=== PATIENT | male | born 2000 | race Caucasian/White ===

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

== ENCOUNTER 2019-01-24 20:05 | Emergency (ER) | payer OTHER ==
[~2019-01-24] VITALS: Ht 182.9 cm; Wt 79.5 kg
[2019-01-24 21:08] LABS: BASO # 0.1 10^3/uL (0.0-0.2); BASO % 0.5 % (0.0-1.0); EOS # 0.3 10^3/uL (0.0-0.5); EOS % 2.8 % (0.0-3.0); HEMATOCRIT 44.8 % (42.0-52.0); HEMOGLOBIN 15.6 g/dl (13.5-17.5); LYMPH # 1.4 10^3/uL (1.5-5.0); LYMPH % 15.2 % (24.0-44.0); MEAN CORPUSCULAR HEMOGLOBIN 33.4 pg (27.0-33.0); MEAN CORPUSCULAR HGB CONC 34.8 g/dl (32.0-36.5); MEAN CORPUSCULAR VOLUME 95.9 fl (80.0-96.0); MONO # 0.8 10^3/uL (0.0-0.8); MONO % 8.4 % (0.0-5.0); NEUTROPHILS # 6.9 10^3/uL (1.5-8.5); NEUTROPHILS % 72.7 % (36.0-66.0); PLATELET COUNT, AUTOMATED 206 10^3/uL (150-450); RED BLOOD COUNT 4.67 10^6/uL (4.30-6.10); WHITE BLOOD COUNT 9.5 10^3/uL (4.0-10.0)
[2019-01-24 21:42] LABS: ALBUMIN 3.6 GM/DL (3.2-5.2); ALT/SGPT 14 U/L (12-78); BILIRUBIN,DIRECT 0.3 MG/DL (0.0-0.2); BILIRUBIN,TOTAL 1.2 MG/DL (0.2-1.0); BLOOD UREA NITROGEN 9 MG/DL (7-18); CALCIUM LEVEL 8.8 MG/DL (8.5-10.1); CARBON DIOXIDE LEVEL 31 MEQ/L (21-32); CHLORIDE LEVEL 103 MEQ/L (98-107); CREATININE FOR GFR 1.05 MG/DL (0.70-1.30); GLUCOSE, FASTING 106 MG/DL (70-100); LIPASE 95 U/L (73-393); POTASSIUM SERUM 3.8 MEQ/L (3.5-5.1); SODIUM LEVEL 139 MEQ/L (136-145)
[2019-01-24] MEDS ORDERED: PRED20TA PO (22:21)
[2019-01-24 22:34] VITALS: BP 121/62
--- NOTE | 2019-01-25 07:37 | REP ---
Clinical: Chest pain and decreased breath sounds . Comparison: None . Technique: PA and lateral. Findings: The mediastinum and cardiac silhouette are normal. The lung de los santos are clear and without acute consolidation, effusion, or pneumothorax. The skeletal structures are intact and normal. Impression: 1. No acute cardiopulmonary process. Electronically Signed by Cristóbal Mcclure MD 01/25/2019 07:30 A
== END 2019-01-24 22:36 | disposition home or self-care (01) ==
LOC: M ED 20:05
DX: J06.9 Acute upper respiratory infection, unspecified (principal); J02.9 Acute pharyngitis, unspecified; K21.9 Gastro-esophageal reflux disease without esophagitis; F17.200 Nicotine dependence, unspecified, uncomplicated

== ENCOUNTER 2019-08-14 17:43 | Emergency (ER) | payer OTHER ==
[~2019-08-14] VITALS: Ht 182.9 cm; Wt 90.8 kg
[~2019-08-14 17:43] MED LIST changes: -LIDO1SOL8 PO; +LIDO2SOL17 PO; +PRED20TA PO
[2019-08-14] MEDS ORDERED: IBUP200C25 PO (17:50)
--- NOTE | 2019-08-14 18:35 | REP ---
Clinical: Trauma . Technique: AP, lateral views of the right ankle Findings: No acute fracture or dislocation. Skeletal structures and joint spaces are intact and normal. Ankle mortise appears stable. No subcutaneous emphysema or radiodense foreign body. Impression: Normal right ankle radiograph series. Electronically Signed by Cristóbal Mcclure MD 08/14/2019 06:26 P
--- NOTE | 2019-08-14 18:37 | REP ---
Clinical: Trauma. Technique: AP, lateral, bilateral oblique views right foot . Findings: Lateral view suggests soft tissue swelling overlying the dorsum of the midfoot. The osseous structures and joint spaces are intact and normal. There is no evidence for acute fracture or dislocation. No subcutaneous emphysema or radiodense foreign body. Impression: Dorsal mid foot swelling. No acute fracture or dislocation. Electronically Signed by Cristóbal Mcclure MD 08/14/2019 06:29 P
[2019-08-14 19:12] VITALS: BP 116/62
== END 2019-08-14 19:12 | disposition home or self-care (01) ==
LOC: M ED 17:43
DX: S90.31XA Contusion of right foot, initial encounter (principal); W20.8XXA Other cause of strike by thrown, projected or falling object, initial encounter; Y92.099 Unspecified place in other non-institutional residence as the place of occurrence of the external cause; Y93.89 Activity, other specified; Y99.9 Unspecified external cause status; F17.200 Nicotine dependence, unspecified, uncomplicated

== ENCOUNTER 2020-01-12 15:36 | Emergency (ER) | payer OTHER ==
[~2020-01-12] VITALS: Ht 185.4 cm; Wt 89.0 kg
[~2020-01-12 15:36] MED LIST changes: +IBUP200C25 PO
[2020-01-12] MEDS ORDERED: BENA25CA4 IM (16:20)
[2020-01-12] MEDS ORDERED: hydrOXYzine 50 MG TAB PO STA (18:36)
[2020-01-12] MEDS ORDERED: PRED20TA PO (18:39)
[2020-01-12] MEDS ORDERED: HYDR50TA70 PO (18:39)
[2020-01-12 18:43] VITALS: BP 117/74
[2020-01-12] MEDS ORDERED: diphenhydrAMINE 50MG CAP PO ONE (18:45)
== END 2020-01-12 18:50 | disposition home or self-care (01) ==
LOC: M ED 15:36
DX: T63.441A Toxic effect of venom of bees, accidental (unintentional), initial encounter (principal); Y92.89 Other specified places as the place of occurrence of the external cause; Y93.9 Activity, unspecified; H05.229 Edema of unspecified orbit; F17.200 Nicotine dependence, unspecified, uncomplicated

== ENCOUNTER 2020-01-25 13:42 | Emergency (ER) | payer OTHER ==
[~2020-01-25] VITALS: Ht 185.4 cm; Wt 89.9 kg
[~2020-01-25 13:42] MED LIST changes: +BENA25CA4 IM; +HYDR50TA70 PO
--- NOTE | 2020-01-25 14:18 | REPVR ---
PROCEDURE INFORMATION: Exam: XR Right Hand Exam date and time: 01/25/2020 2:01 PM Age: 19 years old Clinical indication: Pain; Hand; Right; Additional info: Fall TECHNIQUE: Imaging protocol: XR Right hand. Views: 3 or more views. COMPARISON: CR Hand, Asif, Lat 09/20/2018 4:57 PM FINDINGS: Bones/joints: There is a stable deformity to the 5th metacarpal but is now healed. There is an acute fracture seen involving the base of the 5th proximal phalanx. Soft tissues: Normal. IMPRESSION: Healed 5th metacarpal fracture deformity but there is a new fracture involving the base of the 5th proximal phalanx. Electronically signed by: Aston Dimas On 01/25/2020 14:17:48 PM
[2020-01-25 15:48] VITALS: BP 120/75
== END 2020-01-25 15:48 | disposition home or self-care (01) ==
LOC: M ED 13:42
DX: S62.616A Displaced fracture of proximal phalanx of right little finger, initial encounter for closed fracture (principal); S66.306A Unspecified injury of extensor muscle, fascia and tendon of right little finger at wrist and hand level, initial encounter; W19.XXXA Unspecified fall, initial encounter; Y92.9 Unspecified place or not applicable; Y93.9 Activity, unspecified; Y99.9 Unspecified external cause status

== ENCOUNTER 2020-08-05 11:07 | Emergency (ER) | payer OTHER ==
[~2020-08-05] VITALS: Ht 188 cm; Wt 95.0 kg
[2020-08-05] MEDS ORDERED: IBUP1TAB7 PO (11:22)
--- NOTE | 2020-08-05 11:42 | REP ---
INDICATION: pain after twisting COMPARISON: None. FINDINGS: There is no fracture or dislocation. Mineralization and joint spaces are normal. There are no calcifications or foreign bodies. There is no effusion. IMPRESSION: Negative . <Electronically signed by Ricky Aguirre > 08/05/20 0829
[2020-08-05 12:11] VITALS: BP 127/66
== END 2020-08-05 12:14 | disposition home or self-care (01) ==
LOC: M ED 11:07
DX: S83.91XA Sprain of unspecified site of right knee, initial encounter (principal); X50.1XXA Overexertion from prolonged static or awkward postures, initial encounter; Y92.89 Other specified places as the place of occurrence of the external cause; Y93.9 Activity, unspecified; Y99.1 Military activity

== ENCOUNTER → 2020-09-29 | Outpatient (CLI) | payer OTHER ==
[~2020-09-29] MED LIST changes: +IBUP1TAB7 PO
--- NOTE | 2020-09-30 20:22 | ECGEPIP ---
[facility] Test Date: 2020-09-29 Pat Name: CARLOS GAONA Department: Room: - Gender: Male Medical Appointment Scheduler: kristi : 2000 Requested By: Arthur Bui Order Number: [id number] Reading MD: Chino Tyler Measurements Intervals Bryan Rate: 60 P: 22 HI: 146 QRS: 65 QRSD: 90 T: 32 QT: 376 QTc: 376 Interpretive Statements Normal sinus rhythm with Marked sinus arrhythmia, Otherwise within normal limits. No prior ECG available for comparison at the time of interpretation. Electronically Signed on 09-30-2020 20:22:30 EDT by Chino Tyler
== END ==
LOC: M EKG 13:37
PROVIDERS: ATTEND Anesthesiology
DX: R06.81 Apnea, not elsewhere classified (principal)

== ENCOUNTER 2020-10-05 08:35 | Day surgery (SDC) | payer OTHER ==
[~2020-10-05] VITALS: Ht 182.9 cm; Wt 90.7 kg
[~2020-10-05 08:35] MED LIST changes: +LR 1,000 ML IV ONE
[2020-10-05] MEDS ORDERED: BUPIVACAINE/EPIN 0.5% 30 ML VIAL As Ordered ONE (09:45)
[2020-10-05] MEDS ORDERED: LIDOCAINE W/EPINEPHRINE 1% 20ML VIAL As Ordered ONE (09:45)
[2020-10-05] MEDS ORDERED: SCOPOLAMINE 1MG TRANSDERMAL PATCH TOP ONE (09:55)
[2020-10-05] MEDS ORDERED: dexameTHASONE 4 MG/ML 1ML VIAL (J1100 PER 1MG) As Ordered ONE (10:01)
[2020-10-05] MEDS ORDERED: ACETAMINOPHEN 1000MG 100ML IV BTL (OFIRMEV) (J0131 PER 10MG) As Ordered ONE ×2 (10:01→10:28)
[2020-10-05] MEDS ORDERED: propofoL 200 MG/20 ML VIAL As Ordered ONE (10:01)
[2020-10-05] MEDS ORDERED: ROCURONIUM BROMIDE 50 MG/5 ML VIAL As Ordered ONE (10:01)
[2020-10-05] MEDS ORDERED: LIDOCAINE 2% 100MG/5ML SDV (FOR ANES.) As Ordered ONE (10:01)
[2020-10-05] MEDS ORDERED: ONDANSETRON 4MG/2ML VIAL As Ordered ONE (10:01)
[2020-10-05] MEDS ORDERED: SUCCINYLCHOLINE 100 MG/5 ML SYRINGE (J0330) As Ordered ONE (10:01)
[2020-10-05] MEDS ORDERED: fentaNYL 100 MCG/2 ML INJECTION (J3010) As Ordered ONE (10:02)
[2020-10-05] MEDS ORDERED: MIDAZOLAM INJ 2MG/2ML VIAL (J2250 PER 1MG) As Ordered ONE (10:02)
[2020-10-05] MEDS ORDERED: HYDROmorphone HCL 2 MG/ML 1ML VIAL (J1170) As Ordered ONE (10:33)
[2020-10-05] MEDS ORDERED: oxyCODONE 5MG TAB PO PRN (11:00)
[2020-10-05] MEDS ORDERED: LR 1,000 ML IV SCH ×2 (11:00→11:05)
[2020-10-05] MEDS ORDERED: ONDANSETRON 4MG/2ML VIAL IV PRN (11:00)
[2020-10-05] MEDS ORDERED: HYDROMORPHONE HCL 0.5 MG/ 0.5 ML SYRINGE (J1170 PER 1) IV PRN (11:00)
[2020-10-05] MEDS ORDERED: NORCO, ANEXSIA 5/325MG TABLET (HYDROcodone/ACETAMINOPHEN) PO PRN (11:05)
--- NOTE | 2020-10-05 11:33 | RO ---
OPERATIVE NOTE DATE OF OPERATION: 10/05/2020 PREOPERATIVE DIAGNOSIS: Chronic tonsillitis. POSTOPERATIVE DIAGNOSIS: Chronic tonsillitis. PROCEDURE: Tonsillectomy. SURGEON: Noam Toussaint MD [facility] SPECIALIST: ANESTHESIA: DESCRIPTION OF PROCEDURE: Under general anesthesia with the patient intubated a Cheema-Darius mouth gag was inserted. The tonsillar area was infiltrated with Lidocaine with Epinephrine and Marcaine. Using cautery I dissected the tonsils free from their beds on both sides. The vessels seen were cauterized. The patient tolerated the procedure well. Same procedure performed on both sides. No blood loss. The patient was extubated and transferred to recovery room in excellent condition.
[2020-10-05] MEDS: fentaNYL 100 MCG/2 ML INJECTION (J3010) IV PRN ×2 (11:50→12:00)
[2020-10-05 12:55] VITALS: BP 113/61
== END 2020-10-05 13:10 | disposition home or self-care (01) ==
LOC: M SDC 08:35
PROVIDERS: ATTEND Otolaryngology
DX: J35.01 Chronic tonsillitis (principal)
CPT/HCPCS: 42826; 88302; J0131; J0330; J1100; J1170; J2250; J2405; J3010

== ENCOUNTER 2020-11-16 20:42 | Emergency (ER) | payer OTHER ==
[~2020-11-16] VITALS: Ht 185.4 cm; Wt 91.5 kg
[~2020-11-16 20:42] MED LIST changes: -LR 1,000 ML IV ONE
[2020-11-16] MEDS ORDERED: BOOSTRIX/ADACEL VACCINE (DIPHTH/PERTUSS/ACELL/TETANUS) 0.5ML SYR IM ONE (22:45)
[2020-11-16] MEDS ORDERED: AUGM875T28 PO (22:54)
[2020-11-16 22:56] VITALS: BP 120/74
[2020-11-16] MEDS ORDERED: AUGMENTIN 875 MG TAB PO ONE (23:35)
--- NOTE | 2020-11-17 00:01 | REPVR ---
PROCEDURE INFORMATION: Exam: XR Right Hand Exam date and time: 11/16/2020 10:45 PM Age: 19 years old Clinical indication: Other: Nail puncture to palm; Additional info: Nail in hand TECHNIQUE: Imaging protocol: XR Right hand. Views: 3 or more views. COMPARISON: CR Hand, complete 01/25/2020 1:52 PM FINDINGS: Bones/joints: Chronic deformity of the 5th metacarpal bone and base of the 5th proximal phalanx. No acute fracture. No dislocation. Soft tissues: Normal. No radiopaque foreign body. IMPRESSION: 1. No acute fracture. 2. Chronic fractures as described. 3. No radiopaque foreign body. Electronically signed by: Sejal Mckeon On 11/17/2020 00:00:15 AM
== END 2020-11-16 23:41 | disposition home or self-care (01) ==
LOC: M ED 20:42
DX: S61.431A Puncture wound without foreign body of right hand, initial encounter (principal); W29.4XXA Contact with nail gun, initial encounter; Y92.009 Unspecified place in unspecified non-institutional (private) residence as the place of occurrence of the external cause; Y93.89 Activity, other specified; Y99.9 Unspecified external cause status

== ENCOUNTER 2021-03-21 10:19 | Emergency (ER) | payer OTHER ==
[~2021-03-21] VITALS: Ht 182.9 cm; Wt 96.5 kg
[~2021-03-21 10:19] MED LIST changes: +AUGM875T28 PO
--- OUTSIDE RECORDS SUMMARY | 2021-03-21 10:26 | CCD ---
Author Author [facility] Organization [facility] Address Unknown Phone Unavailable Care Team Providers Care Real Time Analyst Name Role Phone Noam Toussaint MD Unavailable Unavailable Noam Toussaint MD Unavailable Unavailable Noam Toussaint MD Unavailable Unavailable Noam Toussaint MD Unavailable Unavailable Noam Toussaint MD Unavailable Unavailable Noam Toussaint MD Unavailable Unavailable Noam Toussaint MD Unavailable Unavailable Noam Toussaint MD Unavailable Unavailable Noam Toussaint MD Unavailable Unavailable Noam Toussaint MD Unavailable Unavailable Noam Toussaint MD Unavailable Unavailable [place]Noam MD Unavailable Unavailable [place]Noam MD Unavailable Unavailable [place]Noam MD Unavailable Unavailable Noam Toussaint MD Unavailable Unavailable Noam Toussaint MD Unavailable Unavailable Noam Toussaint MD Unavailable Unavailable Noam Toussaint MD Unavailable Unavailable Noam Toussaint MD Unavailable Unavailable Noam Toussaint MD Unavailable Unavailable Noam Toussaint MD Unavailable Unavailable Noam Toussaint MD Unavailable Unavailable Noam Toussaint MD Unavailable Unavailable Noam Toussaint MD Unavailable Unavailable Noam Toussaint MD Unavailable Unavailable Noam Toussaint MD Unavailable Unavailable E[place]ls[place]Noam MD Unavailable Unavailable E[place]ls[place]Noam MD Unavailable Unavailable [place]Noam MD Unavailable Unavailable [place]Noam MD Unavailable Unavailable [place]Noam MD Unavailable Unavailable Belén II, Billy PA Unavailable Unavailable Belén II, Billy PA Unavailable Unavailable Belén II, Billy PA Unavailable Unavailable Belén II, Billy PA Unavailable Unavailable Belén II, Billy PA Unavailable Unavailable Belén II, Billy PA Unavailable Unavailable Belén II, Billy PA Unavailable Unavailable Belén II, Billy PA Unavailable Unavailable Belén II, Billy PA Unavailable Unavailable Belén II, Billy PA Unavailable Unavailable Belén II, Billy PA Unavailable Unavailable Belén II, Billy PA Unavailable Unavailable Belén II, Billy PA Unavailable Unavailable Belén II, Billy PA Unavailable Unavailable Belén II, Billy PA Unavailable Unavailable Belén II, Billy PA Unavailable Unavailable Belén II, Billy PA Unavailable Unavailable Belén II, Billy PA Unavailable Unavailable Belén II, Billy PA Unavailable Unavailable Re-disclosure Warning The records that you are about to access may contain information from federally-assisted alcohol or drug abuse programs. If such information is present, then the following federally mandated warning applies: This information has been disclosed to you from records protected by federal confidentiality rules (42 CFR part 2). The federal rules prohibit you from making any further disclosure of this information unless further disclosure is expressly permitted by the written consent of the person to whom it pertains or as otherwise permitted by 42 CFR part 2. A general authorization for the release of medical or other information is NOT sufficient for this purpose. The Federal rules restrict any use of the information to criminally investigate or prosecute any alcohol or drug abuse patient.The records that you are about to access may contain highly sensitive health information, the redisclosure of which is protected by Article 27-F of the [facility] Public Health law. If you continue you may have access to information: Regarding HIV / AIDS; Provided by facilities licensed or operated by the [facility] Office of Mental Health; or Provided by the [facility] Office for People With Developmental Disabilities. If such information is present, then the following [facility] mandated warning applies: This information has been disclosed to you from confidential records which are protected by state law. State law prohibits you from making any further disclosure of this information without the specific written consent of the person to whom it pertains, or as otherwise permitted by law. Any unauthorized further disclosure in violation of state law may result in a fine or nursing home sentence or both. A general authorization for the release of medical or other information is NOT sufficient authorization for further disc losure. Encounters Encounter Providers Location Date Indications Data Source(s ) Office Visit Attender: Billy Agee/Norbert/Addy/Rein dl 10/12/2020 01:30:00 PM EDT [facility] ([facility], ) Outpatient Attender: Noam Agee/Norbert/Addy/Haim nunez 09/14/2020 09:50:00 AM EDT [facility] ([facility], ) Immunizations Vaccine Date Status Description Data Source(s) COVID-19 VACCINE Pfizer 09/23/2020 12:00:00 AM EDT completed [facility] Vaccine Series Complete: YESThis Data wa s Submitted to [facility] [employer]. COVID-19 VACCINE Pfizer 08/31/2020 12:00:00 AM EDT completed [facility] Vaccine Series Complete: NOThis Data was Submitted to [facility] [employer]. Medications Medication Brand Name Start Date Product Form Dose Route Admi nistrative Instructions Pharmacy Instructions Status Indications Reaction Description Data Source(s) Acetaminophen 325 MG / Hydrocodone Bitartrate 5 MG Oral Tabl et [[place]] [place] 10/05/2020 12:00:00 AM EDT active [facility] ([facility], ) Amoxicillin 500 MG / Clavulanate 125 MG Oral Tablet [Augment in] Augmentin 09/14/2020 12:00:00 AM EDT ORAL completed [facility] ([facility], ) No Active Medications 09/14/2020 12:00:00 AM EDT completed [facility] ([facility], ) Insurance Providers Payer name Policy type / Coverage type Policy ID Covered green party ID Covered green party's relationship to lyles Policy Lyles Plan Information U [id number] Self [id number] U [id number] Self [id number] U [id number] Self [id number] 100 EAST ACTIVE DUTY [id number] SP [id number] [employer] - RECURRING [id number] 18 [id number] EAST HU[employer]NA - O/P [id number] 18 [id number] Problems, Conditions, and Diagnoses No Information Surgeries/Procedures Procedure Description Date Indications Data Source(s) Tonsillectomy > 12 Years 10/05/2020 12:00:00 AM EDT [facility] ([facility], ) Results ID Date Data Source [id number] 10/05/2020 10:38:00 AM EDT [facility] ([facility]) Name Value Range Interpretation Code Description Data Maria Elena rce(s) Supporting Document(s) Surgical pathology study Laboratory test result [facility] ([facility]) FINAL DIAGNOSIS A-Right tonsil, tonsillectomy: Squamous epithelial-lined hyperplastic lymphoid tissue, consistent with tonsil. Negative for malignancy. B-Left tonsil, tonsillectomy: Squamous epithelial-lined hyperplastic lymphoid tissue, consistent with tonsil. Negative for malignancy. 10/06/2020 - 1114 CLINICAL DIAGNOSIS Chronic tonsillitis 10/05/2020 - 152 GROSS DIAGNOSIS A - Received in formalin labeled "right tonsil" and consists of a fragment of tonsil 4 x 4 x 3 cm. The specimen is grossly unremarkable. [employer] section submitted in one. B - Received in formalin labeled "left tonsil" and consists of a fragment of tonsil 3 x 3 x 2 cm. The specimen is grossly unremarkable. [employer] section submitted in one. -OA 10/05/2020 - 1526 Signed RAISA GOMEZ MD 10/06/2020 1115 ID Date Data Source [id number] 08/09/2020 11:33:00 AM EDT [facility] Name Value Range Interpretation Code Description Data Maria Elena rce(s) Supporting Document(s) SARS coronavirus [address] [facility] [place] This lab was ordered by [facility] and reported by [facility]. ID Date Data Source [id number] 06/13/2020 08:55:00 AM EST [facility] Name Value Range Interpretation Code Description Data Maria Elena rce(s) Supporting Document(s) SARS coronavirus 2 RNA Not Detected [facility] [place] This lab was ordered by [facility] and reported by [facility]. Procedure Social History No Information Vital Signs ID Date Data Source UNK Name Value Range Interpretation Code Description Data Source(s) Body height 72 [in_i] 72 [in_i] [facility] ([facility]) 6'0" Body weight 198.00 [lb_av] 198.00 [lb_av] [facility] Body mass index (BMI) [Ratio] 26.9 kg/m2 26.9 k g/m2 [facility] ([facility]) [place] body weight 178 [lb_av] 178 [lb_av] [facility] ([facility]) Body weight 89.813 kg 89.813 kg [facility] ([facility]) Body surface area Derived from formula 2.12 m2 2.12 m2 [facility] ([facility]) Body weight 91.174 kg 91.174 kg [facility] ([facility]) Body surface area Derived from formula 2.14 m2 2.14 m2 [facility] ([facility]) Body height 72 [in_i] 72 [in_i] [facility] ([facility]) 6'0" Body weight 201.00 [lb_av] 201.00 [lb_av] [facility] ([facility]) Body mass index (BMI) [Ratio] 27.3 kg/m2 27.3 k g/m2 [facility] ([facility]) [place] body weight 178 [lb_av] 178 [lb_av] [facility] ([facility])
--- OUTSIDE RECORDS SUMMARY | 2021-03-21 11:40 | CCD ---
Author Author [facility] Organization [facility] Address Unknown Phone Unavailable Care Team Providers Care Paper Stacker Name Role Phone Noam Toussaint MD Unavailable Unavailable Noam Toussaint MD Unavailable Unavailable Noam Toussaint MD Unavailable Unavailable Noam Toussaint MD Unavailable Unavailable Noam Toussaint MD Unavailable Unavailable Noam Toussaint MD Unavailable Unavailable Noam Toussaint MD Unavailable Unavailable Noam Toussaint MD Unavailable Unavailable Noam Toussaint MD Unavailable Unavailable Noam Toussaint MD Unavailable Unavailable [place] Toussaint MD Unavailable Unavailable BogueNoam MD Unavailable Unavailable BogueNoam MD Unavailable Unavailable BogueNoam MD Unavailable Unavailable Noam Toussaint MD Unavailable Unavailable Noam Toussaint MD Unavailable Unavailable Noam Toussaint MD Unavailable Unavailable Noam Toussaint MD Unavailable Unavailable Noam Toussaint MD Unavailable Unavailable Noam Toussaint MD Unavailable Unavailable Noam Toussaint MD Unavailable Unavailable Noam Toussaint MD Unavailable Unavailable Noam Toussaint MD Unavailable Unavailable Noam Toussaint MD Unavailable Unavailable Noam Toussaint MD Unavailable Unavailable Noam Toussaint MD Unavailable Unavailable BogueNoam MD Unavailable Unavailable BogueNoam MD Unavailable Unavailable BogueNoam MD Unavailable Unavailable BogueNoam MD Unavailable Unavailable BogueNoam MD Unavailable Unavailable Belén II, Billy PA [...] is protected by Article 27-F of the [facility] Public Health law. If you continue you may have access to information: Regarding HIV / AIDS; Provided by facilities licensed or operated by the [facility] Office of Mental Health; or Provided by the [facility] Office for People With Developmental Disabilities. If such information is present, then the following [facility] mandated warning applies: This information has been [...] law may result in a fine or halfway sentence or both. A general authorization for the release of medical or other information is NOT sufficient authorization for further disc losure. Encounters Encounter Providers Location Date Indications Data Source(s ) Office Visit Attender: Billy Agee/Norbert/Addy/Rein dl 10/12/2020 01:30:00 PM EDT [facility] ([facility], ) Outpatient Attender: Noam Agee/Norbert/Addy/Haim nunez 09/14/2020 09:50:00 AM EDT [facility] ([facility], ) Immunizations Vaccine Date Status Description Data Source(s) COVID-19 VACCINE Pfizer 09/23/2020 12:00:00 AM EDT completed [facility] Vaccine Series Complete: YESThis Data wa s Submitted to [facility] [employer]. COVID-19 VACCINE Pfizer 08/31/2020 12:00:00 AM EDT completed [facility] Vaccine Series Complete: NOThis Data was Submitted to [facility] [employer]. Medications Medication Brand Name Start Date Product Form Dose Route Admi nistrative Instructions Pharmacy Instructions Status Indications Reaction Description Data Source(s) Acetaminophen 325 MG / Hydrocodone Bitartrate 5 MG Oral Tabl et [[place]] [place] 10/05/2020 12:00:00 AM EDT active [facility] ([facility], ) Amoxicillin 500 MG / Clavulanate 125 MG Oral Tablet [Augment in] Augmentin 09/14/2020 12:00:00 AM EDT ORAL completed [facility] ([facility], ) No Active Medications 09/14/2020 12:00:00 AM EDT completed [facility] ([facility], ) Insurance Providers Payer name Policy type / Coverage type Policy ID Covered green party ID Covered green party's relationship to lyles Policy Lyles Plan Information U [id number] Self [id number] U [id number] Self [id number] U [id number] Self [id number] 100 EAST ACTIVE DUTY [id number] SP [id number] [employer] [id number] 18 [id number] [employer] - O/P [id number] 18 [id number] Problems, Conditions, and Diagnoses No Information Surgeries/Procedures Procedure Description Date Indications Data Source(s) Tonsillectomy > 12 Years 10/05/2020 12:00:00 AM EDT [facility] ([facility], ) Results ID Date Data Source [id number] 10/05/2020 10:38:00 AM EDT [facility] ([facility]) Name Value Range Interpretation Code Description Data Maria Elena rce(s) Supporting Document(s) Surgical pathology study Laboratory test result [facility] ([facility]) FINAL DIAGNOSIS A-Right tonsil, tonsillectomy: Squamous epithelial-lined [...] 3 cm. The specimen is grossly unremarkable. [employer] section submitted in one. B - Received in formalin labeled "left tonsil" and consists of a fragment of tonsil 3 x 3 x 2 cm. The specimen is grossly unremarkable. [employer] section submitted in one. -OA 10/05/2020 - 1526 Signed RAISA GOMEZ MD 10/06/2020 1115 ID Date Data Source [id number] 08/09/2020 11:33:00 AM EDT [facility] Name Value Range Interpretation Code Description Data Maria Elena rce(s) Supporting Document(s) SARS coronavirus 2 RNA Not Detected [facility] [place] This lab was [facility] and reported by [facility]. ID Date Data Source [id number] 06/13/2020 08:55:00 AM EST [facility] Name Value Range Interpretation Code Description Data Maria Elena rce(s) Supporting Document(s) SARS coronavirus 2 RNA Not Detected [facility] [place] This lab was ordered by [facility] and reported by [facility]. Procedure Social History No Information Vital Signs ID Date Data Source UNK Name Value Range Interpretation Code Description Data Source(s) Body height 72 [in_i] 72 [in_i] [facility] ([facility]) 6'0" [place] body weight 178 [lb_av] 178 [lb_av] [facility] ([facility]) Body weight 198.00 [lb_av] 198.00 [lb_av] [facility] ([facility]) Body weight 89.813 kg 89.813 kg [facility] ([facility]) Body mass index (BMI) [Ratio] 26.9 kg/m2 26.9 k g/m2 [facility] ([facility]) Body surface area Derived from formula 2.12 m2 2.12 m2 [facility] ([facility]) Body weight 91.174 kg 91.174 kg [facility] ([facility]) Body surface area Derived from formula 2.14 m2 2.14 m2 [facility] ([facility]) Body height 72 [in_i] 72 [in_i] [facility] ([facility]) 6'0" Body weight 201.00 [lb_av] 201.00 [lb_av] [facility] ([facility]) Body mass index (BMI) [Ratio] 27.3 kg/m2 27.3 k g/m2 [facility] ([facility]) [place] body weight 178 [lb_av] 178 [lb_av] [facility] ([facility])
[2021-03-21] MEDS ORDERED: LIDOCAINE 4% CREAM 5GM (LMX4) TOP ONE (12:00)
[2021-03-21] MEDS ORDERED: NAPROXEN 250 MG TAB PO ONE (12:00)
--- NOTE | 2021-03-21 12:39 | REP ---
INDICATION: effusion, patellar tendon tender, decr. ROM. COMPARISON: X-ray 08/05/2020 TECHNIQUE: Axial soft tissue and bone windows with coronal and sagittal reconstructions. FINDINGS: Femoral condyles are without fracture or focal lesion there is no osteochondral defect. No avulsion. Likewise the tibial plateau shows no depressed fracture, focal lesion or other acute finding. There is no abnormality of the proximal fibula with tibiofibular articulation. Is only trace joint effusion evident. Patellar tendon shows no gross thickening or tear by CT but there is prepatellar subcutaneous edema that may reflect some tendinitis or a prepatellar bursitis. There is only trace joint fluid about the knee compartments. There is some subcutaneous soft tissue density also about the medial patellar retinaculum that may reflect strain of the retinaculum or partial tear. I do not see similar finding about the lateral patellar retinaculum. Patella itself shows no fracture or focal lesion. There is no patellar subluxation or dislocation. No gross chondromalacia of the patella. See no ossific loose body or chondromalacia in the 3 joint compartments. No other significant finding. IMPRESSION: 1. Some prepatellar subcutaneous edema adjacent to the patellar tendon without gross evidence of a tear. This may reflect some prepatellar bursitis or tendinitis. 2. There is also some subcutaneous soft tissue edema superficial to the medial patellar retinaculum that may reflect a strain or partial tear. 3. Trace joint fluid evident. I do not see other significant finding. 4. The bony patella, distal femur, proximal tibia and fibula are without acute abnormality. No chondromalacia or loose body. <Electronically signed by Chano Contreras > 03/21/21 6764
[2021-03-21] MEDS: ALBUTEROL 90 MCG/ACT 8GM HFA INHALER INH SCH ×2 (12:40→12:54)
--- NOTE | 2021-03-21 13:22 | REP ---
INDICATION: cough, wheeze. COMPARISON: 01/24/2019 FINDINGS: The superior mediastinal structures are midline. The cardiac silhouette is unremarkable in size, shape, and position. The diaphragmatic surfaces of the lungs are regular, and the costophrenic angles are clear. There is evidence of mild bilateral perihilar peribronchial cuffing and representing a change from the prior exam. The lung de [place] are otherwise clear. The imaged osseous structures are intact. IMPRESSION: Likely reactive airway disease. <Electronically signed by Jaron Fair > 03/21/21 [id number]
[2021-03-21 14:17] VITALS: BP 123/73
[2021-03-21] MEDS ORDERED: PROAAER10 INH (14:28)
[2021-03-21] MEDS ORDERED: DICL20GE TP (14:28)
[2021-03-21] MEDS ORDERED: IBUP-1022 PO (14:28)
--- NOTE | 2021-03-21 16:50 | ED PDOC ---
Post-Departure Follow-Up radiology repor tfaxed to [facility] Shahnaz Cortez MD Mar 21, 2021 16:50
== END 2021-03-21 14:35 | disposition home or self-care (01) ==
LOC: M ED 10:19
DX: M25.461 Effusion, right knee (principal); J06.9 Acute upper respiratory infection, unspecified; M76.51 Patellar tendinitis, right knee; R06.2 Wheezing; F17.200 Nicotine dependence, unspecified, uncomplicated

== ENCOUNTER 2021-05-19 02:40 | Emergency (ER) | payer OTHER ==
[~2021-05-19] VITALS: Ht 182.9 cm; Wt 98.6 kg
[~2021-05-19 02:40] MED LIST changes: +DICL20GE TP; +IBUP-1022 PO; +PROAAER10 INH
[2021-05-19 02:41] VITALS: BP 143/88
== END 2021-05-19 05:41 | disposition left against medical advice (07) ==
LOC: M ED 02:40
DX: Z53.21 Procedure and treatment not carried out due to patient leaving prior to being seen by health care provider (principal)